=== PATIENT | male | born 1965 | race Caucasian/White ===

== ENCOUNTER 2018-07-18 13:42 | Emergency (ER) | payer OTHER ==
[~2018-07-18] VITALS: Ht 195.6 cm; Wt 97.5 kg
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
[2018-07-18] MEDS ORDERED: LAMICTAL200 M1 PO (14:23)
[2018-07-18] MEDS ORDERED: FLUOXETINE HCL40 M1 PO (14:23)
[2018-07-18] MEDS ORDERED: BUPROPION XL300 M1 PO (14:24)
[2018-07-18] MEDS ORDERED: ATORVASTATIN CA10 M1 PO (14:24)
[2018-07-18] MEDS ORDERED: BUPROPION XL150 MG PO (14:25)
[2018-07-18] MEDS ORDERED: GENVOYA TABLET1 EACH PO (14:25)
[2018-07-18 23:56] VITALS: BP 115/69
== END 2018-07-19 02:57 ==
LOC: ERH 13:42
DX: F15.10 Other stimulant abuse, uncomplicated (principal)
CPT/HCPCS: 80307; 96372